=== PATIENT | male | born 1940 | race Caucasian/White ===

== ENCOUNTER 2018-01-02 13:35 | Emergency (ER) | payer MEDICARE, MEDICAID ==
[~2018-01-02] VITALS: Ht 165.1 cm; Wt 77.0 kg
[2018-01-02 14:39] VITALS: BP 144/74
== END 2018-01-02 17:27 | disposition home or self-care (01) ==
LOC: ER 13:35
DX: R22.41 Localized swelling, mass and lump, right lower limb (principal); I10 Essential (primary) hypertension; Z96.651 Presence of right artificial knee joint
CPT/HCPCS: 93971; 99284

== ENCOUNTER 2018-01-06 15:47 | Emergency (ER) | payer MEDICARE, MEDICAID ==
[~2018-01-06] VITALS: Ht 162.6 cm; Wt 77.0 kg
[2018-01-06] MEDS ORDERED: MORPHINE SULFATE 4 MG/ML CPJ (NOT FOR IM USE) IV STA (17:24)
[2018-01-06] MEDS ORDERED: ONDANSETRON HCL 4MG/2ML VIAL IV STA (17:24)
[2018-01-06] MEDS ORDERED: SODIUM CHLORIDE 0.9% 1,000 ML IV ONE (17:24)
[2018-01-06 17:32] LABS: BASOPHILS % 1.3 % (0.0-2.0); EOSINOPHILS % 3.9 % (0.0-5.0); HEMATOCRIT. 32.6 % (42.0-52.0); HEMOGLOBIN. 10.8 g/dL (14.0-18.0); LYMPHOCYTES % 21.7 % (20.0-50.0); MEAN CORPUSCULAR HEMOGLOBIN 29.7 pg (28.0-32.0); MEAN CORPUSCULAR VOLUME 89.5 fL (80.0-94.0); MEAN PLATELET VOLUME 7.2 fl (7.4-10.4); MONOCYTES % 10.4 % (2.0-8.0); NEUTROPHILS % 62.7 % (40.0-76.0); PLATELET 344 x1000/uL (130-400); RED BLOOD CELL COUNT 3.64 mill/uL (4.7-6.1); RED CELL DISTRIBUTION WIDTH 14.6 % (11.6-14.6)
[2018-01-06 17:36] LABS: CHLORIDE 109 mEq/L (98-107)
[2018-01-06 17:38] LABS: INR 1.2
[2018-01-06 22:41] VITALS: BP 138/85
== END 2018-01-06 22:42 | disposition home or self-care (01) ==
LOC: ER 17:30
DX: M79.89 Other specified soft tissue disorders (principal); M25.561 Pain in right knee; E11.9 Type 2 diabetes mellitus without complications; E78.00 Pure hypercholesterolemia, unspecified; I10 Essential (primary) hypertension; Z96.651 Presence of right artificial knee joint
CPT/HCPCS: 36415; 71045; 73560; 80053; 83880; 85025; 85610; 85730; 93005; 93971; 96374; 96375; 99285; J2270; J2405; J7030

== ENCOUNTER 2018-02-13 17:12 | Emergency (ER) | payer MEDICARE, MEDICAID ==
[~2018-02-13] VITALS: Ht 157.5 cm; Wt 75.0 kg
[2018-02-13 17:27] VITALS: BP 118/61
== END 2018-02-13 19:45 | disposition left against medical advice (07) ==
LOC: ER 17:55
DX: M79.89 Other specified soft tissue disorders (principal); R21 Rash and other nonspecific skin eruption
CPT/HCPCS: 99281

== ENCOUNTER 2020-05-25 11:46 | Emergency (ER) | payer MEDICARE, MEDICAID ==
[~2020-05-25] VITALS: Ht 152.4 cm; Wt 76.0 kg
[2020-05-25 11:53] VITALS: BP 120/72
[2020-05-25] MEDS ORDERED: CEPHALEXIN 250MG CAPSULE PO ONE (12:45)
[2020-05-25] MEDS ORDERED: ACETAMINOPHEN 500MG TABLET PO ONE (12:45)
== END 2020-05-25 13:25 | disposition home or self-care (01) ==
LOC: ER 12:09
DX: L03.113 Cellulitis of right upper limb (principal); M79.89 Other specified soft tissue disorders; E11.9 Type 2 diabetes mellitus without complications; I10 Essential (primary) hypertension
CPT/HCPCS: 99283

== ENCOUNTER 2021-10-06 10:12 | Inpatient (IN) | payer MEDICARE, MEDICAID ==
[~2021-10-06] VITALS: Ht 160 cm; Wt 70.4 kg
[2021-10-06 11:36] LABS: BASOPHILS % 1.1 % (0.0-2.0); EOSINOPHILS % 1.9 % (0.0-5.0); HEMATOCRIT. 43.3 % (42.0-52.0); HEMOGLOBIN. 14.9 g/dL (14.0-18.0); LYMPHOCYTES % 24.2 % (20.0-50.0); MEAN CORPUSCULAR HEMOGLOBIN 31.5 pg (28.0-32.0); MEAN CORPUSCULAR VOLUME 91.3 fL (80.0-94.0); MEAN PLATELET VOLUME 7.8 fl (7.4-10.4); MONOCYTES % 7.8 % (2.0-8.0); PLATELET 213 x1000/uL (130-400); RED BLOOD CELL COUNT 4.74 mill/uL (4.7-6.1)
[2021-10-06 11:42] LABS: CHLORIDE 105 mEq/L (98-107)
[2021-10-06] MEDS ORDERED: ONDANSETRON HCL 4MG/2ML INJ IV PRN (14:15)
[2021-10-06] MEDS ORDERED: ACETAMINOPHEN 325MG TABLET PO PRN (14:15)
[2021-10-06] MEDS ORDERED: IOHEXOL-350 100 ML BOTTLE ONE (14:53)
[2021-10-06] MEDS ORDERED: AMLODIPINE 5MG TABLET PO SCH (15:30)
[2021-10-06 18:15] VITALS: BP 165/71
[2021-10-06] MEDS ORDERED: CLONIDINE 0.1MG TABLET PO SCH (18:45)
[2021-10-06] MEDS ORDERED: INFLUENZA VACCINE 05/PF 0.5 ML SYRINGE IM ONE (18:45)
[2021-10-06 18:54] VITALS: BP 165/71
[2021-10-06 20:00] VITALS: BP 152/64
[2021-10-06] MEDS: ATORVASTATIN CALCIUM 40MG TABLET PO SCH (22:05)
[2021-10-07] VITALS (7 sets, daily range): BP systolic 122–165; BP diastolic 67–76
[2021-10-07] MEDS ORDERED: LOT205 MT (06:42)
[2021-10-07] MEDS ORDERED: METF-873 PO (06:42)
[2021-10-07] MEDS ORDERED: DUTA0.5C2 PO (06:42)
[2021-10-07] MEDS ORDERED: MIRA25TA MT (06:42)
[2021-10-07] MEDS ORDERED: OXYB5TAB17 PO (06:42)
[2021-10-07] MEDS: AMLODIPINE 5MG TABLET PO SCH (12:50)
[2021-10-07] MEDS: ASPIRIN 81MG TABLET PO SCH (12:51)
[2021-10-07 13:34] LABS: T4 FREE 1.08 ng/dL (0.76-1.46)
[2021-10-07] MEDS: LOSARTAN POTASSIUM 50 MG TABLET PO SCH (17:37)
[2021-10-07] MEDS: ATORVASTATIN CALCIUM 40MG TABLET PO SCH (21:50)
[2021-10-08] VITALS: BP 137/59
[2021-10-08 04:00] VITALS: BP 145/72
[2021-10-08 08:00] VITALS: BP 140/77
[2021-10-08] MEDS: AMLODIPINE 10MG TABLET PO SCH ×2 (09:00→10:21)
[2021-10-08] MEDS: AMLODIPINE 5MG TABLET PO SCH (09:00)
[2021-10-08] MEDS: ASPIRIN 81MG TABLET PO SCH (10:20)
[2021-10-08] MEDS: LOSARTAN POTASSIUM 50 MG TABLET PO SCH (10:21)
[2021-10-08 12:00] VITALS: BP 128/81
[2021-10-08 16:00] VITALS: BP 132/75
[2021-10-08 16:16] LABS: BASOPHILS % 0.8 % (0.0-2.0); EOSINOPHILS % 2.1 % (0.0-5.0); HEMATOCRIT. 41.9 % (42.0-52.0); HEMOGLOBIN. 14.1 g/dL (14.0-18.0); LYMPHOCYTES % 24.4 % (20.0-50.0); MEAN CORPUSCULAR HEMOGLOBIN 30.9 pg (28.0-32.0); MEAN CORPUSCULAR VOLUME 91.8 fL (80.0-94.0); MEAN PLATELET VOLUME 8.3 fl (7.4-10.4); MONOCYTES % 11.8 % (2.0-8.0); NEUTROPHILS % 60.9 % (40.0-76.0); PLATELET 214 x1000/uL (130-400); RED BLOOD CELL COUNT 4.56 mill/uL (4.7-6.1)
[2021-10-08 16:31] LABS: CHLORIDE 107 mEq/L (98-107)
[2021-10-08 18:58] VITALS: BP 132/75
== END 2021-10-08 21:02 | disposition home or self-care (01) | DRG 74 ==
LOC: ER 10:12 → 7EST 13:46 → ENRESERV 14:37
PROVIDERS: ADMIT Internal Medicine; ATTEND Internal Medicine
DX: G90.8 Other disorders of autonomic nervous system (principal); I10 Essential (primary) hypertension; E11.9 Type 2 diabetes mellitus without complications; R00.1 Bradycardia, unspecified; I16.0 Hypertensive urgency; I20.9 Angina pectoris, unspecified; R07.9 Chest pain, unspecified; Z20.822 Contact with and (suspected) exposure to COVID-19; Z28.21 Immunization not carried out because of patient refusal
CPT/HCPCS: 36415; 70496; 70498; 70551; 71045; 80048; 80053; 83880; 84439; 84443; 84484; 85025; 87426; 93005; 93306; 99285; Q9967

== ENCOUNTER 2022-11-01 11:10 | Emergency (ER) | payer MEDICARE, MEDICAID ==
[~2022-11-01] VITALS: Ht 162.6 cm; Wt 71.0 kg
[~2022-11-01 11:10] MED LIST: DUTA0.5C2 PO; LOT205 MT; METF-873 PO; MIRA25TA MT; OXYB5TAB17 PO
[2022-11-01 11:29] VITALS: BP 190/89
[2022-11-01 12:09] LABS: BASOPHILS % 0.9 % (0.0-2.0); EOSINOPHILS % 1.1 % (0.0-5.0); HEMATOCRIT. 43.5 % (42.0-52.0); HEMOGLOBIN. 14.5 g/dL (14.0-18.0); LYMPHOCYTES % 22.9 % (20.0-50.0); MEAN CORPUSCULAR HEMOGLOBIN 31.1 pg (28.0-32.0); MEAN CORPUSCULAR VOLUME 93.1 fL (80.0-94.0); MONOCYTES % 8.6 % (2.0-8.0); NEUTROPHILS % 66.5 % (40.0-76.0); PLATELET 223 x1000/uL (130-400); RED BLOOD CELL COUNT 4.67 mill/uL (4.7-6.1); RED CELL DISTRIBUTION WIDTH 14.2 % (11.6-14.6)
[2022-11-01 12:27] LABS: CHLORIDE 111 mEq/L (98-107)
[2022-11-01 13:08] LABS: CLARITY URINE CLEAR (CLEAR); COLOR URINE YELLOW (YELLOW); KETONES URINE TRACE (NEGATIVE); LEUKOCYTE ESTERASE URINE NEGATIVE (NEGATIVE); NITRITE URINE NEGATIVE (NEGATIVE); OCCULT BLOOD URINE NEGATIVE (NEGATIVE); PROTEIN URINE TRACE (NEGATIVE); SPECIFIC GRAVITY URINE 1.021 (1.005-1.030)
== END 2022-11-01 15:07 | disposition left against medical advice (07) ==
LOC: ER 11:10 → CANBEDREQ 11-03 19:38
DX: R07.89 Other chest pain (principal); E11.9 Type 2 diabetes mellitus without complications; I10 Essential (primary) hypertension
CPT/HCPCS: 36415; 71045; 80053; 81003; 83880; 84484; 85025; 93005; 99285

== ENCOUNTER 2022-12-15 09:37 | Emergency (ER) | payer MEDICARE, MEDICAID ==
[~2022-12-15] VITALS: Ht 162.6 cm; Wt 69.5 kg
[2022-12-15 10:19] VITALS: BP 153/87; PULSE 63; RESP 18; TEMP 98
[2022-12-15] MEDS ORDERED: CEPH500C2 PO (11:30)
[2022-12-15] MEDS ORDERED: ACET-2708 PO (11:30)
[2022-12-15] MEDS ORDERED: CIPHCO LEFT EAR (11:30)
== END 2022-12-15 11:52 | disposition home or self-care (01) ==
LOC: ER 09:37
DX: H60.92 Unspecified otitis externa, left ear (principal); E11.9 Type 2 diabetes mellitus without complications; I10 Essential (primary) hypertension
CPT/HCPCS: 99283